=== PATIENT | male | born 1990 | race Caucasian/White ===

== ENCOUNTER 2019-06-18 08:15 | Day surgery (SDC) | payer BC ==
[~2019-06-18 08:15] MED LIST: Lactated Ringers 1,000 ML IV SCH; Sodium Chloride 0.9% 10 ML Syringe FLUSH PRN
[2019-06-18] MEDS ORDERED: Propofol 200 MG/20 ML SDV IV ONE (08:16)
[2019-06-18] MEDS ORDERED: fentaNYL 100 MCG/2 ML SDV IV ONE (08:16)
[2019-06-18] MEDS ORDERED: Midazolam 1 MG/ML 2 ML SDV IV ONE (08:16)
--- NOTE | 2019-06-18 10:01 | PCM.OPNOTE ---
- General Post-Op/Procedure Note Date of Surgery/Procedure: 06/18/19 Operative Procedure(s): egd with biopsy Findings: gastritis esophagitis Pre Op Diagnosis: gerd Post-Op Diagnosis: gastritis. esophagitis Anesthesia Technique: JUDY Primary Surgeon: Ben Basurto Anesthesia Provider: Maria Luisa Alvarez Pathology: stomach and esophagus Complications: None Condition: Good Free Text/Narrative:: see dictation
--- NOTE | 2019-06-18 12:35 | OR ---
DATE OF OPERATION: 06/18/2019 SURGEON: Ben Basurto MD PROCEDURE PERFORMED: Upper endoscopy with cold forceps biopsy. PREOPERATIVE DIAGNOSIS: Symptomatic gastroesophageal reflux disease with esophagitis or without esophagitis. POSTOPERATIVE DIAGNOSIS: Esophagitis and gastritis. INDICATIONS FOR PROCEDURE: This is a 28-year-old white male with symptomatic reflux disease. He was offered and accepted an esophagogastroduodenoscopy. DESCRIPTION OF OPERATION: After an excellent IV sedation was administered, the bite block was inserted and passed without difficulty down the patient's esophagus into the stomach. The stomach was insufflated. Scope passed through the pylorus, second portion of the duodenum and slowly withdrawn. Following findings were noted. Duodenum was unremarkable. Stomach demonstrated some diffuse gastritis, especially in the area of the antrum. Biopsies were taken. GE junction measured at approximately 35 to 38 cm. Mild esophagitis was noted and biopsies were taken of the distal esophagus. Remainder of the esophageal exam was unremarkable. The patient tolerated the procedure well and was taken to recovery in good condition. Results to be sent to the patient by letter. /[id number] /MODL
== END 2019-06-18 10:40 | disposition home or self-care (01) ==
LOC: FB.SDS 08:15
PROVIDERS: ATTEND Surgery
DX: K21.0 Gastro-esophageal reflux disease with esophagitis (principal); K29.50 Unspecified chronic gastritis without bleeding; Z79.899 Other long term (current) drug therapy
CPT/HCPCS: 43239; 88305; 88313; 88342; J2250; J2704; J3010; J7120